=== PATIENT | female | born 1960 ===

== ENCOUNTER 2017-06-02 19:31 | Inpatient (IN) | payer MEDICARE, OTHER ==
[~2017-06-02] VITALS: Ht 157.5 cm; Wt 82.5 kg
[~2017-06-02 19:31] MED LIST: DULO30CA50 PO; GABA-504 PO; LISI-567 PO; TIZA4CAP8 PO; TRAM50TA2 PO
[2017-06-02 19:36] VITALS: BP 83/62; PULSE 110; RESP 18; O2SAT 98
[2017-06-02 19:45] VITALS: BP_SYST 83; BP_SYST 93; BP_DIAS 62; BP_DIAS 69; PULSE 110; PULSE 111
--- NOTE | 2017-06-02 20:06 | ED.REPORT ---
HPI-General Illness Date of Service Jun 02, 2017 ED Provider: Dr. Gilbert Pt is a 56 y/o female w/ a hx of HTN presenting to the ED with her due to left foot injury. The patient went to Urgent Care today after stubbing her toes and twisting her left ankle and was found to be hypotensive with SBP in high 80s to low 90s. She did twist her left ankle and stub her toes on May 21 as well. She takes Lisinopril 20 mg daily and Metoprolol 50 mg daily. The pt denies dizziness, lightheadedness, CP, SOB. She has been ambulatory. The patient has been on a recent alcohol binge after 2 weeks of being sober and is experiencing some mild nausea without vomiting, abdominal pain, or pain with eating. The patient states that she began drinking again due to her son passing away from alcohol abuse. Nursing Notes Stated Complaint: FOOT PAIN,LOW BLOOD PRESSURE Chief Complaint: General Complaint Nursing Notes Reviewed: Yes Allergies: Coded Allergies: No Known Allergies (Unverified , 08/27/15) Scheduled Lisinopril (Lisinopril) 20 Mg Tablet 20 MG PO DAILY Loratadine (Loratadine) 10 Mg Capsule 10 MG PO DAILY Metoprolol Succinate ER (Metoprolol Succinate ER) 50 Mg Tab.er.24h 50 MG PO BID Scheduled PRN Docusate Sodium (Colace) 100 Mg Capsule 100 MG PO DAILY PRN PRN For Constipation Duloxetine (Duloxetine) 30 Mg Capsule.dr 60 MG PO DAILY PRN PRN For Pain Gabapentin (Gabapentin) 400 Mg Capsule 400 MG PO TID PRN PRN For Pain Tizanidine (Tizanidine) 4 Mg Capsule 4 MG PO HS PRN PRN For Pain General Time Seen by MD: 20:05 Chief Complaint Other (left foot) Hx Obtained From: Patient Arrived By: Walk-in Sudden in Onset?: No Onset Occurred: 5 - 8 hours ago Symptom Duration: Since onset Location: : Ankle left Quality: Painful Severity: Current: Mild Severity: Maximum: Moderate Past Medical History Past Medical History Sleep Apnea, uses CPAP Hypertension Past Surgical History Encarnacion Surgery at age 17 Smoking History Never Smoker Social History Binge alcoholic Alcohol Use: >5 per day Other Social History: Good social support, Local resident Ambulatory Status Independent Review of Systems Full Review of Systems Constitutional: Denies: Chills, Fever Respiratory: Denies: Non-productive cough, Shortness of breath Cardiovascular: Denies: Chest pain GI: Denies: Abdominal pain Musculoskeletal: Reports: Extremity pain, Extremity swelling Complete sys rev & neg: except as marked. Physical Exam Vital Signs Vital Signs Date Time Temp Pulse Resp B/P Pulse Ox O2 Delivery O2 Flow Rate FiO2 06/02/17 23:30 36.8 102 20 98/71 99 Room Air 06/02/17 22:12 36.4 103 22 107/71 99 Room Air 06/02/17 19:45 110 83/62 06/02/17 19:45 111 93/69 06/02/17 19:36 37 110 18 83/62 98 Room Air Initial VS: Reviewed, Vital signs abnormal Head / Eyes: Atraumatic, Normocephalic, PERRL ENT: Mucous membranes moist, Conjunctiva normal, No scleral icterus Neck: Supple, Full range of motion Respiratory: Breath sounds normal, Clear to auscultation, No respiratory distress Cardiovascular: Regular rate & rhythm, Heart sounds normal, Intact distal pulses Abdomen / GI: Soft, Non-tender Skin: Warm, Dry, No cyanosis Neurologic: Alert, Oriented, Nonfocal Psychiatric: Mood/affect normal, Behavior normal, Normal thought content General/Constitutional: Awake, Alert, No acute distress, Cooperative, Not toxic appearing Lower Extremity / Pelvis / MS: No deformity, Neurologic intact, Vascular intact Ankle / Foot: No deformity, Neurologic intact, Vascular intact LLE: Swelling over lateral ankle on L side with bruising 2/4 DP and PT pulses Tenderness over lateral malleolus Tenderness over ATFL Interpretation & Diagnostics Lab Results Interpretation Result Diagram: 06/04/17 0653 06/04/17 0653 Test 06/02/17 19:58 06/02/17 21:00 06/02/17 23:40 Troponin T < 0.010ug/L (0.0-0.011) Pro-B-Type Natriuretic Peptide 449.5pg/mL (0-249) Alcohols < 10mg/dL (0-10) Hold Purple Top Tube Received (Received) Hold Blue Top Tube Received (Received) Hold Colton Top Tube Received (Received) Hold Benitez Top Tube Received (Received) Urine Color Yellow (YELLOW) Urine Appearance Clear (CLEAR,HAZY) Urine pH 6.0 (5.0-8.0) Urine Specific Pablo <1.005 (1.003-1.035) Urine Protein Negativemg/dL (NEG,TRACE) Urine Glucose (UA) Negativemg/dL (NEGATIVE) Urine Ketones Negativemg/dL (NEGATIVE) Urine Occult Blood Negative (NEGATIVE) Urine Nitrite Negative (NEGATIVE) Urine Bilirubin Negative (NEGATIVE) Urine Urobilinogen Normalmg/dL (NORMAL) Urine Leukocyte Esterase Negative (NEGATIVE) Urine RBC 0-2/hpf (0-2) Urine WBC 0-5/hpf (0-5) Urine Epithelial Cells Few/hpf (NONE-MOD) Urine Crystals None seen (NONE SEEN) Urine Bacteria Few/hpf (NONE-FEW) Urine Hyaline Casts None/lpf (NONE) Urine Granular Casts None seen (NONE SEEN) Urine Waxy Casts None seen (NONE SEEN) Urine Red Blood Cell Casts None seen (NONE SEEN) Urine White Blood Cell Casts None seen (NONE SEEN) Urine Mucus None seen (None Seen) Urine Trichomonas None seen (NONE SEEN) Urine Yeast None (NONE SEEN) Urinalysis Comment None Urine Culture Reflexed Not indicated X-Ray Chest Interpretation Chest Xray Interpretation: IMPRESSION: No acute pulmonary process. Dictated by: Teer Mccoy M.D. on 06/02/2017 at 21:09 Approved by: Tere Mccoy M.D. on 06/02/2017 at 21:10 View: Portable, 1 view Interpretation / Wet Read by: Interpret - Radiologist X-Ray Interpretation Xray Interpretation: IMPRESSION: Minimally displaced third, fourth and fifth distal metatarsal fractures. Dictated by: Tere Mccoy M.D. on 06/02/2017 at 21:11 Approved by: Tere Mccoy M.D. on 06/02/2017 at 21:12 X-Ray Ordered: Foot left Interpretation / Wet Read by: Interpret - Radiologist Xray Interpretation: IMPRESSION: Partially visualized distal metatarsal fractures. Please see foot x-ray dated 06/02/17 for further details. Dictated by: Tere Mccoy M.D. on 06/02/2017 at 21:12 Approved by: Tere Mccoy M.D. on 06/02/2017 at 21:13 X-Ray Ordered: Ankle left Interpretation / Wet Read by: Interpret - Radiologist CT Abd / Pelvis Interpretation Conclusion: Streak artifact is seen intermittently throughout the mesentery and also around the pancreatic tail, likely artifact from spinal hardware. Difficult to entirely exclude a focal acute pancreatitis of the tail. Severe fatty infiltration of the liver. Interpreted by Elise Yu Study type: Abdominal CT IV contrast, Abdom CT oral contrast Interpretation / Wet Read by: Interpret - Radiologist, Discussed w radiologist Re-Eval/Medical Decision Med Decision/Clinical Course 56 yo female with h/o alcohol abuse presents with tachycardia, hypotension and L foot pain after an unknown injury. Pt not initially complaining of abdominal pain but with labs is noted to have extremely elevated lipase. She was found to be mildly tender and abdominal CT was ordered to further visualize the pancreas. CT is consistent with pancreatitis. She received 3L NS while in the ED and BP remained low but pt asymptomatic from low blood pressure. Tachycardia improved. Noted to have foot fracture and otho, Dr. Greer consulted and recommends postop/firm shoe for her fx until she can be seen in f/u as outpatient. Time of Eval: 21:28 Re-Evaluation/Progress Note: Pt rechecked. Discussed lab and imaging findings. After discovering pancreatitis, the patient denies abdominal pain, vomiting, pain with eating although she is having some mild nausea. Consultation #1: Referral / Consult Name: Kenny Greer DO Call Returned at: 21:43 [place] Former: Agrees with eval, Agrees with plan Note: Place boot. Consultation #2: Referral / Consult Name: Patience Farrell MD Consulted With: Hospitalist Call Returned at: 02:32 Machine [place] Former: Will see patient, Agrees with eval, Agrees with plan, Accepts admit Counseled Regarding: Diagnosis, Lab results, Need for admission Discharge & Departure Primary Impression: Acute alcoholic pancreatitis Acute pancreatitis complication: unspecified Qualified Code: K85.20 - Alcohol induced acute pancreatitis without necrosis or infection Additional Impressions: Fracture of metatarsal of left foot, closed Encounter type: initial encounter Metatarsal bone: unspecified metatarsal Fracture alignment: displaced Qualified Code: S92.302A - Fracture of unspecified metatarsal bone(s), left foot, initial encounter for closed fracture Grief at loss of child Alcohol abuse Hypotension Hypotension type: unspecified hypotension type Qualified Code: I95.9 - Hypotension, unspecified POONAM (acute kidney injury) Anemia Anemia type: unspecified type Qualified Code: D64.9 - Anemia, unspecified Dehydration Disposition: ADMITTED TO HOSPITAL Discharge Condition All VS Reviewed: Yes Condition: Stable Referrals: Eric Salinas MD (PCP) Esme Attestation Portions of this note were transcribed by Maximino Varghese. I, Dr. Gilbert personally performed the history, physical exam and medical decision-making; I reviewed and confirmed the accuracy of the information in the transcribed note. Signed by Esme Ravi, 06/02/172029 copies to: Eric Salinas MD, Gary R DO Jun 02, 2017 20:06 MAXIMINO VARGHESE Jun 02, 2017 20:25 Urine Red Blood Cell Casts None seen (NONE SEEN) Urine White Blood Cell Casts None seen (NONE SEEN) Urine Mucus None seen (None Seen) Urine Trichomonas None seen (NONE SEEN) Urine Yeast None (NONE SEEN) Urinalysis Comment None Urine Culture Reflexed Not indicated X-Ray Chest Interpretation Chest Xray Interpretation: IMPRESSION: No acute pulmonary process. Dictated by: Tere Mccoy M.D. on 06/02/2017 at 21:09 Approved by: Tere Mccoy M.D. on 06/02/2017 at 21:10 View: Portable, 1 view Interpretation / Wet Read by: Interpret - Radiologist X-Ray Interpretation Xray Interpretation: IMPRESSION: Minimally displaced third, fourth and fifth distal metatarsal fractures. Dictated by: Tere Mccoy M.D. on 06/02/2017 at 21:11 Approved by: Tere Mccoy M.D. on 06/02/2017 at 21:12 X-Ray Ordered: Foot left Interpretation / Wet Read by: Interpret - Radiologist Xray Interpretation: IMPRESSION: Partially visualized distal metatarsal fractures. Please see foot x-ray dated 06/02/17 for further details. Dictated by: Tere Mccoy M.D. on 06/02/2017 at 21:12 Approved by: Tere Mccoy M.D. on 06/02/2017 at 21:13 X-Ray Ordered: Ankle left Interpretation / Wet Read by: Interpret - Radiologist CT Abd / Pelvis Interpretation Conclusion: Streak artifact is seen intermittently throughout the mesentery and also around the pancreatic tail, likely artifact from spinal hardware. Difficult to entirely exclude a focal acute pancreatitis of the tail. Severe fatty infiltration of the liver. Interpreted by Elise Yu Study type: Abdominal CT IV contrast, Abdom CT oral contrast Interpretation / Wet Read by: Interpret - Radiologist, Discussed w radiologist Re-Eval/Medical Decision Time of Eval: 21:28 Re-Evaluation/Progress Note: Pt rechecked. Discussed lab and imaging findings. After discovering pancreatitis, the patient denies abdominal pain, vomiting, pain with eating although she is having some mild nausea. Consultation #1: Referral / Consult Name: Kenny Greer DO Call Returned at: 21:43 [place] Former: Agrees with eval, Agrees with plan Note: Place boot. Consultation #2: Referral / Consult Name: Patience Farrell MD Consulted With: Hospitalist Call Returned at: 02:32 [place] Former: Will see patient, Agrees with eval, Agrees with plan, Accepts admit Counseled Regarding: Diagnosis, Lab results, Need for admission Discharge & Departure Primary Impression: Acute alcoholic pancreatitis Acute pancreatitis complication: unspecified Qualified Code: K85.20 - Alcohol induced acute pancreatitis without necrosis or infection Additional Impressions: Fracture of metatarsal of left foot, closed Encounter type: initial encounter Metatarsal bone: unspecified metatarsal Fracture alignment: displaced Qualified Code: S92.302A - Fracture of unspecified metatarsal bone(s), left foot, initial encounter for closed fracture Grief at loss of child Alcohol abuse Hypotension Hypotension type: unspecified hypotension type Qualified Code: I95.9 - Hypotension, unspecified POONAM (acute kidney injury) Disposition: ADMITTED TO HOSPITAL Discharge Condition All VS Reviewed: Yes Condition: Stable Referrals: Eric Salinas MD (PCP) Scribe Attestation Portions of this note were transcribed by Maximino Varghese. I, Dr. Gilbert personally performed the history, physical exam and medical decision-making; I reviewed and confirmed the accuracy of the information in the transcribed note. Signed by Esme Ravi, 06/02/17 - 2029 copies to: Eric Salinas MD, Gary R DO Jun 02, 2017 20:06 MAXIMINO VARGHESE Jun 02, 2017 20:25
[2017-06-02 20:18] LABS: BASOPHILS % (AUTO) 0.2 % (0-3); Platelet Count 183 bil/L (150-400)
[2017-06-02] MEDS ORDERED: 0.9% Sodium Chloride 1,000 ML IV ONE ×3 (20:23→21:32)
[2017-06-02 20:26] LABS: EOSINOPHILS % (AUTO) 2.5 % (0-5); MONOCYTES % (AUTO) 18.3 % (4-12); Mean Corpuscular Hemoglobin 33.2 pg (27.0-35.0); Mean Corpuscular Volume 98.4 fL (81-100); NEUTROPHILS % (AUTO) 53.5 % (40-74)
[2017-06-02 20:42] LABS: TROPONIN T < 0.010 ug/L (0.0-0.011)
[2017-06-02 20:50] LABS: Magnesium 1.5 mg/dL (1.6-2.6)
[2017-06-02 21:02] LABS: Lipase > 2500 U/L (13-60)
--- NOTE | 2017-06-02 21:11 | DRSVH ---
PROCEDURE: X-RAY CHEST ONE VIEW, PORTABLE ([id number]) INDICATIONS: hypotension TECHNIQUE: One view of the chest was acquired. COMPARISON: [facility], , CHEST 2 VIEW, 09/14/2016, 17:41. [facility], , CHEST 1 VIEW , 11/05/2015, 12:28. FINDINGS: Surgical changes and devices: Cervicothoracic fixation plate and rods are noted. Lungs and pleura: No pleural effusions or pneumothorax. Unchanged left basilar linear opacity likely scarring. Mediastinum: Mediastinal contours appear normal. Heart size is normal. Bones and chest wall: No suspicious bony lesions. Overlying soft tissues appear unremarkable. IMPRESSION: No acute pulmonary process. Dictated by: Tere Mccoy M.D. on 06/02/2017 at 21:09 Approved by: Tere Mccoy M.D. on 06/02/2017 at 21:10
--- NOTE | 2017-06-02 21:14 | DRSVH ---
PROCEDURE: X-RAY LEFT FOOT COMPLETE, MINIMUM THREE VIEWS ([id number]) INDICATIONS: Left foot pain TECHNIQUE: 3 views of the foot were acquired. COMPARISON: [facility], CR, XR ANKLE 3VW LT, 06/02/2017, 20:22. FINDINGS: Bones: No fractures or dislocations. No suspicious bony lesions. Hallux valgus deformity is presen t. Minimally displaced fractures of the distal third, fourth and fifth metatarsals are present. Soft tissues: No tibiotalar joint effusion. Achilles tendon appears normal. IMPRESSION: Minimally displaced third, fourth and fifth distal metatarsal fractures. Dictated by: Tere Mccoy M.D. on 06/02/2017 at 21:11 Approved by: Tere Mccoy M.D. on 06/02/2017 at 21:12
--- NOTE | 2017-06-02 21:15 | DRSVH ---
PROCEDURE: X-RAY LEFT ANKLE, MINIMUM THREE VIEWS ([id number]) INDICATIONS: Left ankle pain TECHNIQUE: 3 views of the ankle were acquired. COMPARISON: [facility], CR, CHEST 2 VIEW, 09/14/2016, 17:41. [facility], CR, XR FO OT 3VW LT, 06/02/2017, 20:22. FINDINGS: Bones: Partially visualized distal third, fourth and fifth metatarsal fractures. Soft tissues: No tibiotalar joint effusion. Achilles tendon appears normal. IMPRESSION: Partially visualized distal metatarsal fractures. Please see foot x-ray dated 06/02/17 for further details. Dictated by: Tere Mccoy M.D. on 06/02/2017 at 21:12 Approved by: Tere Mccoy M.D. on 06/02/2017 at 21:13
[2017-06-02] MEDS ORDERED: Iohexol 300 mg/mL 30 mL Inj PO ONE (21:35)
[2017-06-02] MEDS ORDERED: Ondansetron 2 mg/mL 2 mL Inj IVPUSH ONE (21:40)
[2017-06-02 22:12] VITALS: BP 107/71; PULSE 103; RESP 22; O2SAT 99
[2017-06-02 23:30] VITALS: BP 98/71; PULSE 102; RESP 20; O2SAT 99
[2017-06-02 23:55] LABS: APPEARANCE,URINE CLEAR (CLEAR,HAZY); COLOR,URINE YELLOW (YELLOW); OCCULT BLOOD,URINE NEGATIVE (NEGATIVE); UROBILINOGEN,URINE NORMAL (NORMAL)
[2017-06-03] VITALS (8 sets, daily range): BP systolic 93–138; BP diastolic 68–88; PULSE 92–103; RESP 15–20; O2SAT 97–99
[2017-06-03] MEDS ORDERED: Thiamine Inj 100 MG, Folic Acid Inj 1 MG, Magnesium Sulfate 50% Inj 2 GM, Multivitamins... IV ONE ×5 (01:50)
[2017-06-03] MEDS ORDERED: Albuterol-Ipratropium 3 mL Inhalation Solution NEB PRN (02:35)
[2017-06-03] MEDS: 0.9% Sodium Chloride 1,000 ML IV SCH ×3 (02:52→19:55)
[2017-06-03 03:46] LABS: BASOPHILS % (AUTO) 0.4 % (0-3); EOSINOPHILS % (AUTO) 2.4 % (0-5); MONOCYTES % (AUTO) 20.8 % (4-12); Mean Corpuscular Hemoglobin 32.8 pg (27.0-35.0); Mean Corpuscular Volume 99.2 fL (81-100); NEUTROPHILS % (AUTO) 51.7 % (40-74); Platelet Count 175 bil/L (150-400)
[2017-06-03] MEDS: HYDROmorphone 0.5 mg/0.5 mL iSecure Syringe IVPUSH PRN ×2 (03:51→18:25)
[2017-06-03] MEDS: Ondansetron 2 mg/mL 2 mL Inj IVPUSH PRN ×2 (03:51→10:34)
--- NOTE | 2017-06-03 04:01 | PCM.HPMED ---
Subjective Date of Service Jun 03, 2017 Primary Provider: Admitting Physician: Patience Farrell MD Primary Care Physician: Eric Salinas MD Attending Physician: Patience Farrell MD Chief Complaint: left foot pain History of Present Illness: Cathy is a 56-year-old female with history of hypertension and alcohol abuse who presents to the ED today for left foot pain. She was evaluated at the urgent care earlier today for left foot pain was found to be hypotensive so she was sent to the ER for further evaluation. Patient reports that about 2 weeks ago she stubbed her left foot on some furniture at home and had fairly moderate foot pain afterwards. She continued to ambulate on it, although with some difficulty and pain. She states that about a week ago she jammed her left foot again on her walker, which caused it to swell and be more painful. She again ambulated on this foot for a few days, and finally came in today due to persistent pain. She denies any loss of consciousness or falls associated with this left foot pain. She does admit openly to binging on alcohol in the previous week due to depressed mood from her son passing away. She reports drinking fairly heavily last week, but reports she was tapering herself off since Monday. She states she only had a few drinks last few days and denies any withdrawal symptoms. She has noticed some mild nausea, loose BMs, and epigastric abdominal pain the past week, which she attributed to the alcohol binge. She has not noticed any fevers, chills, headache, or rashes. She reports she was recently started on metoprolol recently, but does not know why. In the ED she was noted to be afebrile but tachycardic at 110 with a blood pressure in the 80s over 60s. She reports a 3 L of normal saline Her CBC showed a normal white count with a hemoglobin of 10.4 and MCV of 98 Her CMP was pertinent for a BUN/creatinine of 46/1.55. She also has some very mild elevated LFTs, and also a lipase of over 2500. Her alcohol level was less than 10 Her UA was benign She had an x-ray of her left foot and ankle which showed nondisplaced fractures of her third Fourth, and fifth metatarsals. She also had a CT of her abdomen and pelvis which showed mild stranding of the pancreatic tail and severe fatty liver. Review of Systems: Comprehensive review of systems was conducted with the patient and found to be negative except as noted above in HPI. Allergies Coded Allergies: No Known Allergies (Unverified , 08/27/15) PMH Sleep Apnea, uses CPAP Hypertension Chronic back pain Cervical syrinx Alcohol abuse Depression Asthma, mild Surgical History Encarnacion Surgery at age 17 Reports 4 back surgeries Reports cholecystectomy Family History Family history of heart disease Social History Hx Alcohol Use: Yes Hx Substance Use: No Smoking Status: Never Smoker Living Arrangement: Alone Exam Vital Signs Vital Sign - Last Date Time Temp Pulse Resp B/P Pulse Ox O2 Delivery O2 Flow Rate FiO2 06/03/17 01:47 36.8 103 16 93/69 98 Room Air Intake and Output 06/02/17 06/02/17 06/03/17 Cumulative From/Thru 14:59 22:59 06:59 06/02/17 19:36 - 06/02/17 21:55 Intake Total 2999 ml 2999 ml Balance 2999 ml 2999 ml Intake IV Total 2999 ml 2999 ml Exam General: Obese elderly female who appears in no acute distress while lying in bed HEENT: Normocephalic, atraumatic. External ears without defect. PERRLA, EOMI, Anicteric sclerae, moist conjunctivae, and no lid lag. Oropharynx mildly dry with pink mucosa Neck: Supple with full range of motion. No jugular venous distension. Cardiovascular: Regular rate and rhythm soft systolic murmur Pulmonary: Mild end expiratory wheezing diffusely with normal respiratory effort Abdomen: Obese, soft, mildly distended, tympanic to percussion, normoactive bowel sounds, moderately tender to palpation in the epigastrium, no rebound or guarding, no rashes noted MSK: Moderate swelling of the forefoot with moderate pain to palpation and mild erythema with decreased range of motion of the ankle due to pain. There is no cyanosis noted Skin: Warm, dry, intact, no rashes noted Neurological: Cranial nerves grossly intact. Muscle strength grossly intact except for left ankle and foot due to pain, like sensation grossly intact, no focal weakness, no asterixis noted Psychiatric: Normal mood and affect. Alert and oriented to person, place, and time, cooperative and pleasant. Lab and Diagnostics Result Diagram: 06/02/[id number] X-Rays, CTs and MRIs Chest Xray Interpretation: IMPRESSION: No acute pulmonary process. Dictated by: Tere Mccoy M.D. on 06/02/2017 at 21:09 Approved by: Tere Mccoy M.D. on 06/02/2017 at 21:10 View: Portable, 1 view Interpretation / Wet Read by: Interpret - Radiologist X-Ray Interpretation Xray Interpretation: IMPRESSION: Minimally displaced third, fourth and fifth distal metatarsal fractures. Dictated by: Tere Mccoy M.D. on 06/02/2017 at 21:11 Approved by: Tere Mccoy M.D. on 06/02/2017 at 21:12 X-Ray Ordered: Foot left Interpretation / Wet Read by: Interpret - Radiologist Xray Interpretation: IMPRESSION: Partially visualized distal metatarsal fractures. Please see foot x-ray dated 06/02/17 for further details. Dictated by: Tere Mccoy M.D. on 06/02/2017 at 21:12 Approved by: Tere Mccoy M.D. on 06/02/2017 at 21:13 X-Ray Ordered: Ankle left Interpretation / Wet Read by: Interpret - Radiologist CT Abd / Pelvis Interpretation Conclusion: Streak artifact is seen intermittently throughout the mesentery and also around the pancreatic tail, likely artifact from spinal hardware. Difficult to entirely exclude a focal acute pancreatitis of the tail. Severe fatty infiltration of the liver. Interpreted by Elise Yu Study type: Abdominal CT IV contrast, Abdom CT oral contrast Interpretation / Wet Read by: Interpret - Radiologist, Discussed w radiologist Assessment & Plan Cathy is a 56-year-old female with history of hypertension and alcohol abuse who presented with left foot pain. Admitted for left midfoot fracture, alcohol abuse, acute pancreatitis Acute pancreatitis, POA -As demonstrated by elevated lipase and streaking of pancreatic tail on CT imaging. Likely due to alcohol abuse. -We will plan to keep patient NPO -Continue hydration with IV NS 100cc/hr -Symptom management with IV Dilaudid and Zofran Left foot fracture, POA -Third, fourth, fifth distal metatarsal nondisplaced fracture -Dr. Greer consulted, will place in boot with NWB status for now, will need outpatient orthopedic follow-up -Physical therapy ordered Dehydration, POA -Patient has had poor oral intake in the last few days due to her nausea and pain. Likely the cause of her low sodium and chloride and POONAM -Received 3 L NS in the ED and one banana bag -Continue hydration with IV NS at 100cc/hr while NPO Acute kidney injury, POA -Likely due to dehydration, alcohol abuse. Cr of 1.55 on admission -Avoid nephrotoxic agents if possible, further treatment as above Alcohol abuse, POA -Encourage cessation -Case management consult -[facility] protocol initiated Normocytic Anemia, POA Hgb of 10.4 on admit with MCV of 98.4 If worsens, consider anemia workup, likely is heading towards macrocytic with her alcohol abuse Fatty liver disease, POA -As noted on CT of her abdomen, maybe the cause of her mildly elevated LFTs, could also be due to alcohol -We will check lipid profile -We will need further outpatient follow-up Mild intermittent asthma, POA -Patient reports using her inhaler 2-3 times a week, she is currently somewhat wheezy on examination -Start DuoNeb 4 times a day while awake when necessary Essential Hypertension, POA -Has been mildly hypotensive, will hold medications for now Mood disorders, POA -History of depression and anxiety, we will continue her duloxetine Peripheral neuropathy, POA -Due to her degenerative back disease and cervical syrinx -We will continue her gabapentin Tylenol as needed for fever Zofran as needed for nausea Bowel regimen as needed for constipation CODE STATUS: Full resuscitation Patient is admitted under inpatient status with expected length of stay greater than 2 midnights due to severity of presenting symptoms, risk of adverse event, and complexity of treatment plan. Pain Evaluation: Adequate Pain Control VTE Prophylaxis: Sub-Q Heparin (Unfractionated) Resuscitation Status: CPR: Attempt Resuscitation Attending Statement Pt seen and examined by myself and agree with above plan. Rigoberto Castelan DO Jun 03, 2017 03:25 Patience Farrell MD Jun 03, 2017 06:09
--- NOTE | 2017-06-03 06:33 | NUR ---
Admit Admitted to 1024 from ED via stretcher. Able to stand on arrival. Encouraged to not bear weight on left foot r/t fx. RA w/o c/o SOB. Denies CP or discomfort. c/o mild nausea x1 for which prn zofran was administered and effective. c/o pain x1 for which prn Dilaudid was administered and effective. CIWA currently 2 with last reported drink at 1600 on 06/02. Patient reports typically drinking a third of a fifth of 80 proof vodka a day. Personal belongings at bedside per patient request. Oriented to call light use with return demonstration.
[2017-06-03] MEDS ORDERED: LORA10CA9 PO (07:57)
[2017-06-03] MEDS ORDERED: DOCU-41 PO (07:58)
[2017-06-03] MEDS ORDERED: METO-272 PO (07:58)
[2017-06-03] MEDS: Multivit-Miner-Folic Acid-Iron Tablet PO SCH (09:10)
[2017-06-03] MEDS: Heparin 5,000 Unit/mL Inj SUBQ SCH ×2 (09:11→18:25)
--- NOTE | 2017-06-03 09:50 | DRSVH ---
PROCEDURE: CT ABDOMEN AND PELVIS WITH CONTRAST ([id number]) INDICATIONS: elevated lipase TECHNIQUE: After the administration of oral and intravenous contrast, 5 mm thick sections acquired from the diap hragms to the symphysis. 5 mm thick coronal and sagittal reformats were performed. For radiation do se reduction, the following was used: automated exposure control, adjustment of mA and/or kV accordi ng to patient size. COMPARISON: None. FINDINGS: Image quality: Excellent. ABDOMEN: Lung bases: Lung bases are clear. Heart size is normal. Solid organs: Liver and spleen are normal in size and enhancement. There is diffuse fatty infiltrat ion of the liver. Gallbladder has been removed. Biliary system is non-dilated. Pancreas enhances no rmally. No fluid collections, abnormal calcifications, dilated duct, or peripancreatic fluid/strandin g is identified. No adrenal nodules. Kidneys are normal in size and enhancement, without hydronephro sis. Peritoneum and bowel: Stomach, small bowel, and colon loops are normal in caliber and wall thickness . No free fluid or air. Nodes and vessels: No retroperitoneal or mesenteric adenopathy. Aorta and inferior vena cava are no rmal in caliber. Miscellaneous: No ventral hernias. PELVIS: Genitourinary: Bladder wall thickness is normal. Miscellaneous: No inguinal hernias or adenopathy. Bones: There is extensive lower lumbar upper sacral spine surgery for a grade 2 anterolisthesis of L4 on L5. There is also a low Encarnacion type extension jannie extending from the lumbar spine level a lef t-sided spine to the thoracic spine. The images obtained. No vertebral body compression fractures. There is an area thought to be of fluid density in the distal iliopsoas muscle and from of the head o f the right humerus. Clinical correlation for inflammation. IMPRESSION: 1. I do not identify changes to indicated pancreatitis. Minimal pancreatitis cannot be excluded. 2. Extensive previous thoracic and lumbar spine surgery. Previous cholecystectomy. 3. Diffuse fatty infiltration of the liver. 4. Small amount of fluid along the iliopsoas muscle tendon distally on the right of doubtful clinical significance but clinical correlation is needed. Dictated by: Johan Harrington M.D. on 06/03/2017 at 9:41 Approved by: Johan Harrington M.D. on 06/03/2017 at 9:48
--- NOTE | 2017-06-03 11:00 | NUR ---
Evaluation completed. Please go to "Notes" then click on "Assessments and Notes" (bottom left corner of screen). Then select appropriate discipline tab on top of screen.
--- NOTE | 2017-06-03 11:50 | CONS ---
[address] [address] CONSULTATION REPORT PATIENT: ADALBERTO MUNOZ : 1960 MR#: [id number] ADMIT: 06/03/2017 JOB ID: [id number] DATE OF SERVICE: 06/03/2017 ORTHOPEDIC CONSULTATION: This is an orthopedic consult as well as fracture care for left 3rd, 4th and 5th metatarsal neck fractures. CHIEF COMPLAINT: Left foot pain. HISTORY OF PRESENT ILLNESS: This is a pleasant 56-year-old female that states that two weeks ago she stubbed her left foot on the chair of her couch. She immediately had pain to the lateral aspect of her foot at that time, but she was able to continue weightbearing on it. She normally utilizes a rolling walker which she continued to use. She reinjured the foot again a week ago getting out of her car when she stubbed her left foot once again on the back wheel. She had increased pain and swelling at that time. She presented yesterday to the hospital and was being admitted and treated for pancreatitis, but also was evaluated for her left foot continued pain. X-rays were obtained in the emergency department which yielded multiple metatarsal fractures and orthopedics was called for further evaluation. The patient currently complains of lateral foot pain but again states that she still is able to place weight onto the left lower extremity. She is not in any mobilization type of boot or shoe. She denies any abnormal paresthesias to the left lower extremity aside from normal numbness that she has due to multiple low back surgeries. PAST MEDICAL HISTORY: Low back pain. PAST SURGICAL HISTORY: 1. Cervical spine fusion. 2. Lumbar surgery which was performed recently. 3. Previous scoliosis surgery. 4. Bilateral submuscular ulnar nerve transpositions. FAMILY HISTORY: Noncontributory. SOCIAL HISTORY: The patient denies any tobacco utilization. She drinks approximately a quarter to a half of a fifth of hard alcohol a day and states she binge drinks and does this very frequently and as such, why she is currently being hospitalized for pancreatitis. MEDICATIONS: Please see electronic medical record for a list of patient's medications. ALLERGIES: No known drug allergies. REVIEW OF SYSTEMS: The patient denies any fevers, sweats, chills, chest pain, shortness of breath. She mainly complains of left foot pain as described in the history of present illness. PHYSICAL EXAMINATION: General: The patient is alert, no apparent distress. HEENT: Normocephalic, atraumatic. Extraocular movements intact. Nares patent. Lungs: No audible wheezes. No overt signs of respiratory distress. Neuro: Cranial nerves 2-12 are intact. Extremities: On gross observation of the patient's left foot, there is moderate swelling to the foot without any abrasions, ecchymoses or open wounds. She has tenderness to palpation to the 3rd, 4th and 5th metatarsal necks. She does demonstrate palpable dorsalis pedis and posterior tib pulses and is able to dorsiflex and plantar flex the ankle and toes with minimal difficulty. DIAGNOSTIC STUDIES: Three views of the patient's left foot was obtained yesterday in the emergency department. Demonstrates mildly angulated 3rd, 4th and 5th metatarsal neck fractures. IMPRESSION: Left 3rd, 4th and 5th metatarsal neck fractures. PLAN: The patient will be treated for closed treatment without manipulation for 3rd, 4th and 5th metatarsal neck fractures. This is a consult to initiate initial fracture care. The patient has been placed into a hard-soled shoe. She needs to remain in the shoe at all times when placing any weight onto the left lower extremity. I will see the patient back in the outpatient clinic in two weeks. We will repeat x-rays of her foot at that time. She is to call and make an appointment for two weeks. Number to reach is [phone]. Again, this is an orthopedic consult for patient that also initiates fracture care for left 3rd, 4th and 5th metatarsal neck fractures.
--- NOTE | 2017-06-03 19:01 | NUR ---
Pain- Patient complained of left foot pain and requesting pain med. Denies abd. pain. Zofran given this am for nausea which was effective. Up to void clear yellow urine. CIWA score has been 0.
[2017-06-04] VITALS (7 sets, daily range): BP systolic 136–153; BP diastolic 76–101; PULSE 97–120; RESP 16–46; O2SAT 97–100
[2017-06-04] MEDS: HYDROmorphone 0.5 mg/0.5 mL iSecure Syringe IVPUSH PRN (00:43)
[2017-06-04] MEDS: Heparin 5,000 Unit/mL Inj SUBQ SCH ×3 (00:43→16:34)
[2017-06-04] MEDS: 0.9% Sodium Chloride 1,000 ML IV SCH ×4 (00:43→21:18)
--- NOTE | 2017-06-04 06:32 | NUR ---
Activity Tolerating ambulating in room with walking shoe to left foot with minimal pain noted using FWW. Gait slow and steady. Prn Dilaudid administered x1 for foot pain along with elevation and ice which have been effective in managing pain. Currently resting without any complaints.
[2017-06-04] MEDS: Multivit-Miner-Folic Acid-Iron Tablet PO SCH (08:04)
[2017-06-04 08:11] LABS: BASOPHILS % (AUTO) 0.3 % (0-3); EOSINOPHILS % (AUTO) 2.9 % (0-5); Mean Corpuscular Hemoglobin 33.1 pg (27.0-35.0); Mean Corpuscular Volume 102.1 fL (81-100); NEUTROPHILS % (AUTO) 44.1 % (40-74); Platelet Count 274 bil/L (150-400)
[2017-06-04 08:37] LABS: Magnesium 1.3 mg/dL (1.6-2.6)
[2017-06-04] MEDS ORDERED: Lactated Ringer's 1,000 ML IV ONE (08:45)
[2017-06-04] MEDS ORDERED: DULoxetine 30 mg DR Capsule PO PRN (13:45)
[2017-06-04] MEDS ORDERED: TIZANIDINE 4 MG PO PRN (13:45)
[2017-06-04] MEDS ORDERED: Potassium Chloride 20 mEq SR Tablet PO ONE (13:55)
[2017-06-04] MEDS ORDERED: Magnesium Sulf 4 Gm/100 mL H2O 4 GM in IV Premix 1 EACH IV ONE (13:55)
[2017-06-04] MEDS ORDERED: Potassium Chloride Inj 20 MEQ in Dextrose 5% 250 ML IV ONE (13:55)
--- NOTE | 2017-06-04 13:58 | PCM.PNMED ---
Subjective Date of Service Jun 04, 2017 Subjective Abdominal pain improving. foot pain controlled. Started on clear liquid. Remains tachycardic. Home metoprolol resumed Exam Vital Signs Vital Sign - Last Date Time Temp Pulse Resp B/P Pulse Ox O2 Delivery O2 Flow Rate FiO2 06/04/17 12:29 36.7 111 18 147/96 97 Room Air Intake and Output 06/03/17 06/03/17 06/04/17 Cumulative From/Thru 15:00 23:00 07:00 06/02/17 19:36 - 06/04/17 06:24 Intake Total 1176 ml 1542 ml 5717 ml Output Total 2150 ml 900 ml 4050 ml Balance -974 ml 642 ml 1667 ml Intake Oral 0 ml 0 ml 0 ml IV Total 1176 ml 1542 ml 5717 ml Output Urine Total 2150 ml 900 ml 4050 ml # Bowel Movements 0 0 Exam General: Obese elderly female who appears in no acute distress while lying in bed HEENT: Normocephalic, atraumatic. External ears without defect. PERRLA, EOMI, Anicteric sclerae, moist conjunctivae, and no lid lag. Oropharynx mildly dry with pink mucosa Neck: Supple with full range of motion. No jugular venous distension. Cardiovascular: Regular rate and rhythm soft systolic murmur Pulmonary: Mild end expiratory wheezing diffusely with normal respiratory effort Abdomen: Obese, soft, mildly distended, tympanic to percussion, normoactive bowel sounds, moderately tender to palpation in the epigastrium, no rebound or guarding, no rashes noted MSK: Moderate swelling of the forefoot with moderate pain to palpation and mild erythema with decreased range of motion of the ankle due to pain. There is no cyanosis noted Skin: Warm, dry, intact, no rashes noted Neurological: Cranial nerves grossly intact. Muscle strength grossly intact except for left ankle and foot due to pain, like sensation grossly intact, no focal weakness, no asterixis noted Psychiatric: Normal mood and affect. Alert and oriented to person, place, and time, cooperative and pleasant. IVs and Medications Medications Reviewed: Medications were reviewed in detail Lab and Diagnostics Result Diagram: 06/04/17 0653 06/04/17 0653 X-Rays, CTs and MRIs Chest Xray Interpretation: IMPRESSION: No acute pulmonary process. Dictated by: Tere Mccoy M.D. on 06/02/2017 at 21:09 Approved by: Tere Mccoy M.D. on 06/02/2017 at 21:10 View: Portable, 1 view Interpretation / Wet Read by: Interpret - Radiologist X-Ray Interpretation Xray Interpretation: IMPRESSION: Minimally displaced third, fourth and fifth distal metatarsal fractures. Dictated by: Tere Mccoy M.D. on 06/02/2017 at 21:11 Approved by: Tere Mccoy M.D. on 06/02/2017 at 21:12 X-Ray Ordered: Foot left Interpretation / Wet Read by: Interpret - Radiologist Xray Interpretation: IMPRESSION: Partially visualized distal metatarsal fractures. Please see foot x-ray dated 06/02/17 for further details. Dictated by: Tere Mccoy M.D. on 06/02/2017 at 21:12 Approved by: Tere Mccoy M.D. on 06/02/2017 at 21:13 X-Ray Ordered: Ankle left Interpretation / Wet Read by: Interpret - Radiologist CT Abd / Pelvis Interpretation Conclusion: Streak artifact is seen intermittently throughout the mesentery and also around the pancreatic tail, likely artifact from spinal hardware. Difficult to entirely exclude a focal acute pancreatitis of the tail. Severe fatty infiltration of the liver. Interpreted by Elise Yu Study type: Abdominal CT IV contrast, Abdom CT oral contrast Interpretation / Wet Read by: Interpret - Radiologist, Discussed w radiologist Assessment & Plan Cathy is a 56-year-old female with history of hypertension and alcohol abuse who presented with left foot pain. Admitted for left midfoot fracture, alcohol abuse, acute pancreatitis #Acute alcoholic pancreatitis, POA -As demonstrated by elevated lipase and streaking of pancreatic tail on CT imaging. Likely due to alcohol abuse. -start clear liquid diet -Continue hydration with IV NS 100cc/hr -Symptom management with IV Dilaudid and Zofran -Initial lipase > 2500, 1316 today -Both culture negative 2, pro calcitonin negative #Left foot fracture, POA -Third, fourth, fifth distal metatarsal nondisplaced fracture -Dr. Greer consulted, will place in boot with NWB status for now, will need outpatient orthopedic follow-up -Physical therapy ordered #Acute kidney injury, POA, improved -Likely due to dehydration, alcohol abuse. Cr of 1.55 on admission -Avoid nephrotoxic agents if possible, further treatment as above #Alcohol abuse, POA -Encourage cessation -Case management consult -[facility] protocol initiated. Patient has history of severe alcohol withdrawal #Normocytic Anemia, POA Hgb of 10.4 on admit with MCV of 98.4. Hemoglobin 7.9 after agrees aggressive IV hydration If worsens, consider anemia workup, likely is heading towards macrocytic with her alcohol abuse #Fatty liver disease, POA -As noted on CT of her abdomen, maybe the cause of her mildly elevated LFTs, could also be due to alcohol #Mild intermittent asthma, POA -Patient reports using her inhaler 2-3 times a week, she is currently somewhat wheezy on examination -Start DuoNeb 4 times a day while awake when necessary #Essential Hypertension, POA -Resume lisinopril and metoprolol #Mood disorders, POA -History of depression and anxiety, we will continue her duloxetine #Peripheral neuropathy, POA -Due to her degenerative back disease and cervical syrinx -We will continue her gabapentin Tylenol as needed for fever Zofran as needed for nausea Bowel regimen as needed for constipation CODE STATUS: Full resuscitation Disposition: Discharge in 1-2 days VTE Prophylaxis: Sub-Q Heparin (Unfractionated) Resuscitation Status: CPR: Attempt Resuscitation Rajesh Givens MD Jun 04, 2017 13:58
[2017-06-04] MEDS: MeTOProlol XL 50 mg ER24 Tablet PO SCH ×2 (14:45→20:20)
--- NOTE | 2017-06-04 15:35 | NUR ---
Social Work: Multi-Disciplinary Rounds/PT update Pt has been cleared by PT, no needs. Per MD in rounds, pt on CIWA protocol. Pt is not medically stable and likely to remain hospitalized 2-3 more days. SW received CD order from MARGUERITE Rizzo
--- NOTE | 2017-06-04 17:46 | NUR ---
Activity level patient has spent much of the day in the chair with left foot elevated. wearing post-op shoe. reporting minimal pain in left foot--rating 0-5/10. declining PO pain meds, using ice pack with pain relief. patient does report feeling bloated/constipated requesting PO stool softener. diet advanced to clear liquid, tolerating well. patient up to bathroom several times with SBA and was able to walk in reese with PT with FWW. tolerated well. continue to monitor.
[2017-06-05] MEDS: Heparin 5,000 Unit/mL Inj SUBQ SCH ×3 (00:06→16:17)
[2017-06-05] MEDS: 0.9% Sodium Chloride 1,000 ML IV SCH ×2 (04:19→09:23)
[2017-06-05 05:01] VITALS: BP 162/99; PULSE 86; RESP 20; O2SAT 97
[2017-06-05] MEDS: HYDROmorphone 0.5 mg/0.5 mL iSecure Syringe IVPUSH PRN (05:18)
[2017-06-05 08:14] LABS: BASOPHILS % (AUTO) 0.4 % (0-3); EOSINOPHILS % (AUTO) 2.7 % (0-5); MONOCYTES % (AUTO) 24.9 % (4-12); Mean Corpuscular Hemoglobin 33.5 pg (27.0-35.0); Mean Corpuscular Volume 101.2 fL (81-100); NEUTROPHILS % (AUTO) 44.8 % (40-74); Platelet Count 350 bil/L (150-400)
[2017-06-05 08:25] VITALS: PULSE 83; RESP 16; O2SAT 99
[2017-06-05] MEDS: MeTOProlol XL 50 mg ER24 Tablet PO SCH ×2 (09:00→20:46)
[2017-06-05] MEDS: Multivit-Miner-Folic Acid-Iron Tablet PO SCH (09:00)
[2017-06-05 10:35] VITALS: BP 159/89; PULSE 79; RESP 19; O2SAT 98
--- NOTE | 2017-06-05 11:48 | PCM.PNMED ---
Subjective Date of Service Jun 05, 2017 Subjective Patient seen and examined today. She says she is doing better, still some abdominal discomfort. Vitals stable. Exam Vital Signs Vital Sign - Last Date Time Temp Pulse Resp B/P Pulse Ox O2 Delivery O2 Flow Rate FiO2 06/05/17 10:35 37.1 79 19 159/89 98 Room Air Intake and Output 06/04/17 06/04/17 06/05/17 Cumulative From/Thru 15:00 23:00 07:00 06/02/17 19:36 - 06/05/17 06:26 Intake Total 4164 ml 2251 ml 11519 ml Output Total 1700 ml 1100 ml 6850 ml Balance 2464 ml 1151 ml 5282 ml Intake Oral 1320 ml 360 ml 1680 ml IV Total 2844 ml 1891 ml 69900 ml Output Urine Total 1700 ml 1100 ml 6850 ml # Bowel Movements 0 0 Lab and Diagnostics Result Diagram: 06/05/17 0750 06/04/17 0653 X-Rays, CTs and MRIs Chest Xray Interpretation: IMPRESSION: No acute pulmonary process. Dictated by: Tere Mccoy M.D. on 06/02/2017 at 21:09 Approved by: Tere Mccoy M.D. on 06/02/2017 at 21:10 View: Portable, 1 view Interpretation / Wet Read by: Interpret - Radiologist X-Ray Interpretation Xray Interpretation: IMPRESSION: Minimally displaced third, fourth and fifth distal metatarsal fractures. Dictated by: Tere Mccoy M.D. on 06/02/2017 at 21:11 Approved by: Tere Mccoy M.D. on 06/02/2017 at 21:12 X-Ray Ordered: Foot left Interpretation / Wet Read by: Interpret - Radiologist Xray Interpretation: IMPRESSION: Partially visualized distal metatarsal fractures. Please see foot x-ray dated 06/02/17 for further details. Dictated by: Tere Mccoy M.D. on 06/02/2017 at 21:12 Approved by: Tere Mccoy M.D. on 06/02/2017 at 21:13 X-Ray Ordered: Ankle left Interpretation / Wet Read by: Interpret - Radiologist CT Abd / Pelvis Interpretation Conclusion: Streak artifact is seen intermittently throughout the mesentery and also around the pancreatic tail, likely artifact from spinal hardware. Difficult to entirely exclude a focal acute pancreatitis of the tail. Severe fatty infiltration of the liver. Interpreted by Elise Yu Study type: Abdominal CT IV contrast, Abdom CT oral contrast Interpretation / Wet Read by: Interpret - Radiologist, Discussed w radiologist Assessment & Plan Cathy is a 56-year-old female with history of hypertension and alcohol abuse who presented with left foot pain. Admitted for left midfoot fracture, alcohol abuse, acute pancreatitis #Acute alcoholic pancreatitis, POA -As demonstrated by elevated lipase and streaking of pancreatic tail on CT imaging. Likely due to alcohol abuse. -started on clear liquid diet, advance as tolerated -Continue hydration with IV NS 100cc/hr -Symptom management with IV Dilaudid and Zofran -Initial lipase > 2500 > 1316 -Both culture negative 2, pro calcitonin negative #Left foot fracture, POA -Third, fourth, fifth distal metatarsal nondisplaced fracture -Dr. Greer consulted, will place in boot with NWB status for now, will need outpatient orthopedic follow-up -Physical therapy ordered #Acute kidney injury, POA, resolved -Likely due to dehydration, alcohol abuse. Cr of 1.55 on admission -Avoid nephrotoxic agents if possible, further treatment as above #Alcohol abuse, POA -Encourage cessation -Case management consult -CIWA protocol initiated. Patient has history of severe alcohol withdrawal - patient determined to cease, will meet with AA #Macrocytic Anemia, POA Hgb of 10.4 on admit with MCV of 98.4. Hemoglobin ~ 8.0 , stabilized likely chronic, 2/2 alcohol abuse on Folate #Fatty liver disease, POA -As noted on CT of her abdomen, maybe the cause of her mildly elevated LFTs, could also be due to alcohol #Mild intermittent asthma, POA -Patient reports using her inhaler 2-3 times a week, she is currently somewhat wheezy on examination -Start DuoNeb 4 times a day while awake when necessary #Essential Hypertension, POA -Resumed lisinopril and metoprolol #Mood disorders, POA -History of depression and anxiety, we will continue her duloxetine #Peripheral neuropathy, POA -Due to her degenerative back disease and cervical syrinx -We will continue her gabapentin Tylenol as needed for fever Zofran as needed for nausea Bowel regimen as needed for constipation CODE STATUS: Full resuscitation Disposition: Likely home tomorrow, pending clinical improvement. VTE Prophylaxis: Sub-Q Heparin (Unfractionated) Resuscitation Status: CPR: Attempt Resuscitation Time spent 45 mins Mookie Lyles MD Jun 05, 2017 11:48
--- NOTE | 2017-06-05 16:39 | NUR ---
Mobility and Pain patient has increased mobility tolerance. she's been up in the chair for the majority of the day and meals; walked in reese twice with her 4 wheeled walker one loop each time. tolerated well. patient has reported minimal discomfort with left foot rating pain 0-2/10 throughout the day. she's been icing and elevating occasionally today. Diet was advanced to general patient tolerating well without nausea or abdominal discomfort. continue to encourage increased mobility.
[2017-06-05 19:49] VITALS: BP 138/91; PULSE 93; RESP 18; O2SAT 99
[2017-06-05 21:08] LABS: Magnesium 1.4 mg/dL (1.6-2.6)
[2017-06-05] MEDS ORDERED: Magnesium Sulf 2 Gm/50mL Water 2 GM in IV Premix 1 EACH IV ONE (22:00)
[2017-06-06] MEDS: Heparin 5,000 Unit/mL Inj SUBQ SCH ×2 (00:43→08:35)
--- NOTE | 2017-06-06 03:24 | NUR ---
Transfer of Care Assumed care of patient at 0250.
--- NOTE | 2017-06-06 04:14 | NUR ---
Transfer of Care: This RN transferred care around 0250 to Edyta Rivera RN. Pt currently was sleeping, no c/o pain, chest pain or SOB. Tolerating food and fluids with no c/o n/v or abdominal discomfort. Repeat labs for K and Mag completed this shift, Mag 1.4, alerted, new order for a Mag supplement. CIWA this shift 0. Pt pleasant and cooperative with care.
[2017-06-06 05:09] VITALS: BP 132/72; PULSE 93; RESP 18; O2SAT 97
[2017-06-06] MEDS: MeTOProlol XL 50 mg ER24 Tablet PO SCH (08:35)
[2017-06-06] MEDS: Multivit-Miner-Folic Acid-Iron Tablet PO SCH (08:35)
[2017-06-06 09:26] LABS: Magnesium 1.6 mg/dL (1.6-2.6)
--- NOTE | 2017-06-06 11:38 | PCM.DIMED ---
Discharge Instructions Date of Service Jun 06, 2017 Dates of Hospitalization Jun 03, 2017 at 01:10 Discharge Diagnosis Discharge Diagnosis Pancreatitis 3rd, 4th and 5th metatarsal neck fractures Diet Discharge Diet: Heart Healthy Activity Discharge Activity: No restrictions Call your provider Call your provider for: Shortness of breath, Chest pain, Vomitting, Excessive diarrhea, Weakness (unilateral) Patient Instructions Follow-up with PCP in: 2 weeks ([phone]) Provider: Kenny Greer DO Follow-up in: 2 weeks ([phone]) Mookie Lyles MD Jun 06, 2017 11:38
[2017-06-06] MEDS ORDERED: PREN1TAB25 PO (11:42)
[2017-06-06] MEDS ORDERED: Thiamine PO (11:42)
--- NOTE | 2017-06-06 13:47 | PCM.DC.MED ---
Discharge Summary Date of Service Jun 06, 2017 Dates of Hospitalization Date of Hospital Admission Jun 03, 2017 at 01:10 Date of Discharge: Jun 06, 2017 Providers: Admitting Physician: Patience Farrell MD Primary Care Physician: Eric Salinas MD Attending Physician: Mookie Galindo MD Diagnosis at Time of Discharge Diagnosis at Time of Discharge Pancreatitis 3rd, 4th and 5th metatarsal neck fractures Procedures XRay, CTs & MRIs Chest Xray Interpretation: IMPRESSION: No acute pulmonary process. Dictated by: Tere Mccoy M.D. on 06/02/2017 at 21:09 Approved by: Tere Mccoy M.D. on 06/02/2017 at 21:10 View: Portable, 1 view Interpretation / Wet Read by: Interpret - Radiologist X-Ray Interpretation Xray Interpretation: IMPRESSION: Minimally displaced third, fourth and fifth distal metatarsal fractures. Dictated by: Tere Mccoy M.D. on 06/02/2017 at 21:11 Approved by: Tere Mccoy M.D. on 06/02/2017 at 21:12 X-Ray Ordered: Foot left Interpretation / Wet Read by: Interpret - Radiologist Xray Interpretation: IMPRESSION: Partially visualized distal metatarsal fractures. Please see foot x-ray dated 06/02/17 for further details. Dictated by: Tere Mccoy M.D. on 06/02/2017 at 21:12 Approved by: Tere Mccoy M.D. on 06/02/2017 at 21:13 X-Ray Ordered: Ankle left Interpretation / Wet Read by: Interpret - Radiologist CT Abd / Pelvis Interpretation Conclusion: Streak artifact is seen intermittently throughout the mesentery and also around the pancreatic tail, likely artifact from spinal hardware. Difficult to entirely exclude a focal acute pancreatitis of the tail. Severe fatty infiltration of the liver. Interpreted by Elise Yu Study type: Abdominal CT IV contrast, Abdom CT oral contrast Interpretation / Wet Read by: Interpret - Radiologist, Adelina w radiologist Brief History Cathy is a 56-year-old female with history of hypertension and alcohol abuse who presents to the ED today for left foot pain. She was evaluated at the urgent care earlier today for left foot pain was found to be hypotensive so she was sent to the ER for further evaluation. Patient reports that about 2 weeks ago she stubbed her left foot on some furniture at home and had fairly moderate foot pain afterwards. She continued to ambulate on it, although with some difficulty and pain. She states that about a week ago she jammed her left foot again on her walker, which caused it to swell and be more painful. She again ambulated on this foot for a few days, and finally came in today due to persistent pain. She denies any loss of consciousness or falls associated with this left foot pain. She does admit openly to binging on alcohol in the previous week due to depressed mood from her son passing away. She reports drinking fairly heavily last week, but reports she was tapering herself off since Monday. She states she only had a few drinks last few days and denies any withdrawal symptoms. She has noticed some mild nausea, loose BMs, and epigastric abdominal pain the past week, which she attributed to the alcohol binge. She has not noticed any fevers, chills, headache, or rashes. She reports she was recently started on metoprolol recently, but does not know why. In the ED she was noted to be afebrile but tachycardic at 110 with a blood pressure in the 80s over 60s. She reports a 3 L of normal saline Her CBC showed a normal white count with a hemoglobin of 10.4 and MCV of 98 Her CMP was pertinent for a BUN/creatinine of 46/1.55. She also has some very mild elevated LFTs, and also a lipase of over 2500. Her alcohol level was less than 10 Her UA was benign She had an x-ray of her left foot and ankle which showed nondisplaced fractures of her third Fourth, and fifth metatarsals. She also had a CT of her abdomen and pelvis which showed mild stranding of the pancreatic tail and severe fatty liver. Hospital Course Cathy is a 56-year-old female with history of hypertension and alcohol abuse who presented with left foot pain. Admitted for left midfoot fracture, alcohol abuse, acute pancreatitis #Acute alcoholic pancreatitis, POA -As demonstrated by elevated lipase and streaking of pancreatic tail on CT imaging. Likely due to alcohol abuse. -started on clear liquid diet, advance as tolerated -Continue hydration with IV NS 100cc/hr -Symptom management with IV Dilaudid and Zofran -Initial lipase > 2500 > 1316 -Both culture negative 2, pro calcitonin negative #Left foot fracture, POA -Third, fourth, fifth distal metatarsal nondisplaced fracture -Dr. Greer consulted, will place in boot with NWB status for now, will need outpatient orthopedic follow-up #Acute kidney injury, POA, resolved -Likely due to dehydration, alcohol abuse. Cr of 1.55 on admission -Avoid nephrotoxic agents if possible, further treatment as above #Alcohol abuse, POA -Encourage cessation -Case management consult -[facility] protocol initiated. Patient has history of severe alcohol withdrawal - patient determined to cease drinking, will meet with AA #Macrocytic Anemia, POA Hgb of 10.4 on admit with MCV of 98.4. Hemoglobin ~ 8.0 , stabilized likely chronic, 2/2 alcohol abuse on Folate #Fatty liver disease, POA -As noted on CT of her abdomen, maybe the cause of her mildly elevated LFTs, could also be due to alcohol #Mild intermittent asthma, POA -Patient reports using her inhaler 2-3 times a week, she is currently somewhat wheezy on examination, improved -been on DuoNeb 4 times a day while awake when necessary #Essential Hypertension, POA -Resumed lisinopril and metoprolol #Mood disorders, POA -History of depression and anxiety, we will continue her duloxetine #Peripheral neuropathy, POA -Due to her degenerative back disease and cervical syrinx -We will continue her gabapentin Tylenol as needed for fever Zofran as needed for nausea Bowel regimen as needed for constipation CODE STATUS: Full resuscitation Patient tolerated oral diet. To be discharged home Exam Vital Signs (Last) Date Time Temp Pulse Resp B/P Pulse Ox O2 Delivery O2 Flow Rate FiO2 06/06/17 05:09 37.1 93 18 132/72 97 Room Air Test 06/02/17 19:58 06/02/17 21:00 06/02/17 23:40 06/03/17 03:10 Troponin T < 0.010ug/L (0.0-0.011) Pro-B-Type Natriuretic Peptide 449.5pg/mL (0-249) Alcohols < 10mg/dL (0-10) Hold Purple Top Tube Received (Received) Hold Blue Top Tube Received (Received) Hold [place] Top Tube Received (Received) Hold [place]itez Top Tube Received (Received) Urine Color Yellow (YELLOW) Urine Appearance Clear (CLEAR,HAZY) Urine pH 6.0 (5.0-8.0) Urine Specific [place] <1.005 (1.003-1.035) Urine Protein Negativemg/dL (NEG,TRACE) Urine Glucose (UA) Negativemg/dL (NEGATIVE) Urine Ketones Negativemg/dL (NEGATIVE) Urine Occult Blood Negative (NEGATIVE) Urine Nitrite Negative (NEGATIVE) Urine Bilirubin Negative (NEGATIVE) Urine Urobilinogen Normalmg/dL (NORMAL) Urine Leukocyte Esterase Negative (NEGATIVE) Urine RBC 0-2/hpf (0-2) Urine WBC 0-5/hpf (0-5) Urine Epithelial Cells Few/hpf (NONE-MOD) Urine Crystals None seen (NONE SEEN) Urine Bacteria Few/hpf (NONE-FEW) Urine Hyaline Casts None/lpf (NONE) Urine Granular Casts None seen (NONE SEEN) Urine Waxy Casts None seen (NONE SEEN) Urine Red Blood Cell Casts None seen (NONE SEEN) Urine White Blood Cell Casts None seen (NONE SEEN) Urine Mucus None seen (None Seen) Urine Trichomonas None seen (NONE SEEN) Urine Yeast None (NONE SEEN) Urinalysis Comment None Urine Culture Reflexed Not indicated Lactic Acid Level 0.9mmol/L (0.4-2.0) C-Reactive Protein 6.9mg/dL (0.0-0.5) Test 06/03/17 06:30 06/04/17 06:53 06/05/17 07:50 06/06/17 08:45 Triglycerides Level 43mg/dL (0-149) Cholesterol Level 98mg/dL (100-199) LDL Cholesterol, Calculated 37.400mg/dL (0-99) VLDL Cholesterol 8.600mg/dL HDL Cholesterol 52mg/dL (>39) Cholesterol/HDL Ratio 1.88 (0.0-4.4) Total Bilirubin 0.2mg/dL (0.0-1.2) Aspartate Amino Transf (AST/SGOT) 28U/L (0-50) Alanine Aminotransferase (ALT/SGPT) 24U/L (0-32) Alkaline Phosphatase 111U/L (25-150) Total Protein 5.0g/dL (6.4-8.4) Albumin 2.7g/dL (3.4-5.0) Lipase 1316U/L (13-60) Procalcitonin 0.08ng/mL (0.00-0.08) White Blood Count 5.5th/mm3 (3.8-10.1) Red Blood Count 2.54mil/mm3 (3.90-5.20) Hemoglobin 8.5g/dL (12.0-15.6) Hematocrit 25.7% (35.0-46.0) Mean Corpuscular Volume 101.2fL (81-100) Mean Corpuscular Hemoglobin 33.5pg (27.0-35.0) Mean Corpuscular Hemoglobin Concent 33.1% (32.0-37.0) Red Cell Distribution Width 16.0% (12.3-15.4) Platelet Count 350bil/L (150-400) Neutrophils (%) (Auto) 44.8% (40-74) Lymphocytes (%) (Auto) 25.4% (14-46) Monocytes (%) (Auto) 24.9% (4-12) Eosinophils (%) (Auto) 2.7% (0-5) Basophils (%) (Auto) 0.4% (0-3) Sodium Level 140mEq/L (134-144) Potassium Level 3.9mEq/L (3.5-5.2) Chloride Level 104mEq/L (97-108) Carbon Dioxide Level 22mmol/L (18-29) Blood Urea Nitrogen 4mg/dL (6-24) Creatinine 0.45mg/dL (0.57-1.00) Estimat Glomerular Filtration Rate 208mL/min (>59) Glucose Level 99mg/dL (60-99) Calcium Level 8.7mg/dL (8.5-10.1) Magnesium Level 1.6mg/dL (1.6-2.6) Discharge Medications Discharge Medications ([Thiamine]) 100 MG TABLET 100 MG PO DAILY Prescribed by: MOOKIE GALINDO MD Lisinopril (Lisinopril) 20 Mg Tablet 20 MG PO DAILY (Reported) Loratadine (Loratadine) 10 Mg Capsule 10 MG PO DAILY (Reported) Metoprolol Succinate ER (Metoprolol Succinate ER) 50 Mg Tab.er.24h 50 MG PO BID (Reported) Vit#96/Ferrous Fum/FA ( Tablet) 1 Each Tablet 1 TABLET PO DAILY Prescribed by: MOOKIE GALINDO MD As needed Docusate Sodium (Colace) 100 Mg Capsule 100 MG PO DAILY PRN PRN For Constipation (Reported) Duloxetine (Duloxetine) 30 Mg Capsule.dr 60 MG PO DAILY PRN PRN For Pain ( Reported) Gabapentin (Gabapentin) 400 Mg Capsule 400 MG PO TID PRN PRN For Pain (Reported ) Tizanidine (Tizanidine) 4 Mg Capsule 4 MG PO HS PRN PRN For Pain (Reported) Followup Plan Discharge Diet: Heart Healthy Discharge Activity: No restrictions Follow-up with PCP in: 2 weeks ([phone]) Provider: Kenny Greer DO Follow-up in: 2 weeks ([phone]) Time spent 35 mins Mookie Galindo MD Jun 06, 2017 13:47
--- NOTE | 2017-06-06 14:12 | NUR ---
Discharge note- Patient denies abd. pain. No complaints of nausea. Tolerating diet and fluids well. Discharged to home with daughter and personal belongings.
== END 2017-06-06 13:50 | disposition home or self-care (01) | DRG 439 ==
LOC: SED 19:31 → OSC 06-03 01:10
PROVIDERS: ADMIT Specialist; ATTEND Specialist
DX: K85.20 Alcohol induced acute pancreatitis without necrosis or infection (principal); F10.188 Alcohol abuse with other alcohol-induced disorder; N17.9 Acute kidney failure, unspecified; I10 Essential (primary) hypertension; S92.335A Nondisplaced fracture of third metatarsal bone, left foot, initial encounter for closed fracture; S92.345A Nondisplaced fracture of fourth metatarsal bone, left foot, initial encounter for closed fracture; S92.355A Nondisplaced fracture of fifth metatarsal bone, left foot, initial encounter for closed fracture; W22.8XXA Striking against or struck by other objects, initial encounter; Y92.9 Unspecified place or not applicable; D53.9 Nutritional anemia, unspecified; J45.20 Mild intermittent asthma, uncomplicated; F41.8 Other specified anxiety disorders; G62.9 Polyneuropathy, unspecified; E86.0 Dehydration